=== PATIENT | male | born 1960 | race Caucasian/White ===

== ENCOUNTER 2021-01-02 08:34 | Day surgery (SDC) | payer OTHER ==
[~2021-01-02] VITALS: Ht 176.5 cm; Wt 86.8 kg
[~2021-01-02 08:34] MED LIST: ASPIRIN 81 MG CHEWABLE TABLET PO ONE; DIAZEPAM 5 MG TABLET PO ONE; DiphenhydrAMINE HCL 50 MG CAPSULE PO ONE; SODIUM CHLORIDE 0.9% 1,000 ML IV SCH; SODIUM CHLORIDE 0.9% 1,000 ML ONE
[2021-01-02] MEDS ORDERED: ASPIRIN 81 MG CHEWABLE TABLET ONE (08:45)
[2021-01-02] MEDS ORDERED: DiphenhydrAMINE HCL 50 MG CAPSULE ONE (08:46)
[2021-01-02] MEDS ORDERED: DIAZEPAM 5 MG TABLET ONE (08:46)
[2021-01-02] MEDS ORDERED: METF-1211 PO (09:10)
[2021-01-02] MEDS ORDERED: ASPI-1450 PO (09:10)
[2021-01-02] MEDS ORDERED: PIOG30TA10 PO (09:10)
[2021-01-02] MEDS ORDERED: ATOR40TA28 PO (09:10)
[2021-01-02] MEDS ORDERED: SODIUM BICARBONATE 50 MEQ/50 ML VIAL ONE (10:24)
[2021-01-02] MEDS ORDERED: IOHEXOL 300 MG/ML 50 ML VIAL ONE (10:24)
[2021-01-02] MEDS ORDERED: LIDOCAINE/PF 1% 30 ML VIAL ONE (10:24)
[2021-01-02] MEDS ORDERED: IOHEXOL 300 MG/ML 100 ML VIAL ONE (10:24)
[2021-01-02] MEDS ORDERED: IOHEXOL 300 MG/ML 150 ML VIAL ONE (10:24)
[2021-01-02 11:01] VITALS: BP 111/77
[2021-01-02] MEDS ORDERED: FentaNYL CITRATE PF 100 MCG/2 ML VIAL ONE (11:04)
[2021-01-02] MEDS ORDERED: MIDAZOLAM HCL 2 MG/2 ML VIAL ONE (11:04)
[2021-01-02] MEDS ORDERED: IOHEXOL 300 MG/ML 150 ML VIAL IARTER ONE (11:30)
[2021-01-02] MEDS ORDERED: LIDOCAINE 1% 30 ML/SOD BICARB 8.4% 4 ML SQ ONE (11:30)
[2021-01-02] MEDS ORDERED: FentaNYL CITRATE PF 100 MCG/2 ML VIAL IVP ONE (11:30)
[2021-01-02] MEDS ORDERED: MIDAZOLAM HCL 2 MG/2 ML VIAL IVP ONE (11:30)
[2021-01-02] MEDS ORDERED: HEPARIN SODIUM 1000 UNITS/NS 1,000 ML IARTER ONE (11:30)
[2021-01-02 11:58] VITALS: BP 104/72
[2021-01-02] MEDS ORDERED: SODIUM CHLORIDE 0.9% 1,000 ML IV ONE (12:00)
[2021-01-02 14:02] LABS: GLUCOMETER DEV NAME(LOC) SDS.; GLUCOSE,POINT OF CARE 190 MG/DL (70-110)
== END 2021-01-02 15:15 | disposition home or self-care (01) ==
LOC: CATHLAB 08:34
PROVIDERS: ATTEND Internal Medicine Interventional Cardiology
DX: R94.39 Abnormal result of other cardiovascular function study (principal); I25.10 Atherosclerotic heart disease of native coronary artery without angina pectoris; E11.9 Type 2 diabetes mellitus without complications; E78.5 Hyperlipidemia, unspecified; I35.0 Nonrheumatic aortic (valve) stenosis; Z79.899 Other long term (current) drug therapy; Z98.890 Other specified postprocedural states
CPT/HCPCS: 82962; 93005; 93460; 99152; 99153; C1760; J2250; J3010; J3490 ×2; J7030; Q9967